=== PATIENT | female | born 1955 | race Caucasian/White ===

== ENCOUNTER 2024-08-19 11:11 | Inpatient (IN) | payer MEDICARE, OTHER ==
[~2024-08-19] VITALS: Ht 172.7 cm; Wt 54.4 kg
[2024-08-19] MEDS ORDERED: ONDA-104 PO (11:32)
[2024-08-19] MEDS ORDERED: METO25TA6 PO (11:32)
[2024-08-19] MEDS ORDERED: GABA300C PO (11:32)
[2024-08-19] MEDS ORDERED: ASPI81TA31 PO (11:32)
[2024-08-19] MEDS ORDERED: SENN1TAB59 PO (11:32)
[2024-08-19] MEDS ORDERED: POLY17PO4 PO (11:32)
[2024-08-19] MEDS ORDERED: LORA-259 PO (11:32)
[2024-08-19] MEDS ORDERED: MELA3CAP2 PO (11:32)
[2024-08-19] MEDS ORDERED: BISA10SU61 RC (11:32)
[2024-08-19] MEDS ORDERED: LOSA25TA27 PO (11:32)
[2024-08-19] MEDS ORDERED: MULT-213 PO (11:32)
[2024-08-19] MEDS ORDERED: HYDR-501 PO (11:32)
[2024-08-19] MEDS ORDERED: FOLI1TAB27 PO (11:32)
[2024-08-19] MEDS ORDERED: NITR0.4T48 SL (11:32)
[2024-08-19] MEDS ORDERED: MAG355OR18 PO (11:32)
[2024-08-19 12:00] LABS: BASOPHILS # (AUTO) 0.1 K/UL (0.0-0.2); DIFFERENTIAL COMMENT 0; EOSINOPHILS # (AUTO) 0.1 K/uL (0.0-0.7); EOSINOPHILS % (AUTO) 3.1 % (0.0-7.0); HEMATOCRIT 32.3 % (31.2-41.9); HEMOGLOBIN 11.1 g/dL (10.9-14.3); LYMPHOCYTES # (AUTO) 1.6 K/uL (0.8-4.8); LYMPHOCYTES % (AUTO) 34.5 % (20.5-51.5); MEAN CORPUSCULAR HEMOGLOBIN 33.7 uug (24.7-32.8); MEAN CORPUSCULAR HGB CONC 34 g/dL (32.3-35.6); MEAN CORPUSCULAR VOLUME 98.5 fL (75.5-95.3); MONOCYTES # (AUTO) 0.3 K/uL (0.1-1.30); MONOCYTES % (AUTO) 6.6 % (0.0-11.0); NEUTROPHILS # (AUTO) 2.5 K/uL (1.8-8.9); NEUTROPHILS % (AUTO) 53.8 % (38.5-71.5); PLATELET COUNT (AUTO) 291 K/uL (179-408); RED BLOOD CELL COUNT(AUTO) 3.28 MIL/uL (3.63-4.92); RED CELL DISTRIBUTION WIDTH 14.5 % (12.3-17.7); WHITE BLOOD COUNT (AUTO) 4.7 K/uL (3.8-11.8)
[2024-08-19 12:08] LABS: *BILIRUBIN,URIN NEGATIVE (NEGATIVE); *BLOOD, URINE NEGATIVE (NEGATIVE); *CLARITY,URINE CLEAR (CLEAR); *COLOR,URINE YELLOW (YELLOW); *KETONES,URINE NEGATIVE (NEGATIVE); *PROTEIN,URINE NEGATIVE (NEGATIVE); *UROBILINOGEN,URINE 0.2 E.U./dl (NORMAL); LEUKOCYTE ESTERASE ,URINE NEGATIVE (NEGATIVE); NITRITE, URINE NEGATIVE (NEGATIVE); UGLUCOSE NEGATIVE (NEGATIVE)
[2024-08-19 12:13] LABS: ALANINE AMINOTRANSFERASE 36 U/L (14-59); ALBUMIN 3.8 g/dL (3.4-5.0); ALKALINE PHOSPHATASE 67 U/L (50-136); ASPARTATE AMINOTRANSFERASE 26 U/L (15-37); BILIRUBIN,DIRECT 0.2 mg/dL (0.0-0.2); BILIRUBIN,TOTAL 0.5 mg/dL (0.2-1.0); CALCIUM 9.4 mg/dL (8.5-10.1); CARBON DIOXIDE 27 mmol/L (21-32); CHLORIDE 106 mmol/L (98-107); CREATININE 0.6 mg/dL (0.6-1.3); ETHANOL < 3 MG/DL (0-10); GLUCOSE 85 mg/dL (74-106); SODIUM SERUM 143 mmol/L (136-145); TOTAL PROTEIN, SERUM 6.8 g/dL (6.4-8.2); UREA NITROGEN, BLOOD 6 mg/dL (7-18)
[2024-08-19 12:14] LABS: ACETAMINOPHEN < 2.0 ug/mL (10-30)
[2024-08-19 12:16] LABS: POTASSIUM 4.1 mmol/L (3.5-5.1)
[2024-08-19 12:20] LABS: *AMPHETAMINE, URINE NEGATIVE (NEGATIVE); *BARBITURATE, URINE NEGATIVE (NEGATIVE); *BENZODIAZEPINE, URINE NEGATIVE (NEGATIVE); *CANNABINOID, URINE NEGATIVE (NEGATIVE); *COCCAINE, URINE NEGATIVE (NEGATIVE); *OPIATE, URINE NEGATIVE (NEGATIVE); *PHENCYCLIDINE SCREEN,URINE NEGATIVE (NEGATIVE); FENTANYL, URINE NEGATIVE (NEGATIVE)
[2024-08-19 13:08] LABS: IRON, SERUM 56 ug/dL (50-175)
[2024-08-19] MEDS ORDERED: MELA3TAB41 PO (16:35)
[2024-08-19] MEDS ORDERED: MAGNESIUM HYDROXIDE 30 ML LIQUID UDC PO PRN (17:00)
[2024-08-19] MEDS ORDERED: MAG HYDROX/AL HYDROX/SIMETH 30 ML LIQUID UDC PO PRN ×2 (17:00→18:00)
[2024-08-19] MEDS ORDERED: TEMAZEPAM 7.5 MG CAPSULE PO PRN ×2 (17:00)
[2024-08-19 17:30] VITALS: BP 128/71; TEMP 98.6; O2SAT 98
[2024-08-19] MEDS ORDERED: TEMAZEPAM 15 MG CAPSULE PO PRN (17:30)
[2024-08-19] MEDS: BLOOD SUGAR DIAGNOSTIC 1 EACH STRIP VI ONE (17:37)
[2024-08-19] MEDS: LORAZEPAM 1 MG TABLET PO PRN (17:40)
[2024-08-19] MEDS ORDERED: SENNOSIDES/DOCUSATE SODIUM TABLET PO PRN (18:00)
[2024-08-19] MEDS ORDERED: NITROGLYCERIN 0.4 MG/TAB BOTTLE SL PRN (18:00)
[2024-08-19] MEDS ORDERED: MIRALAX 17 GM POWD.PACK PO PRN (18:00)
[2024-08-19] MEDS ORDERED: ONDANSETRON HCL 4 MG TABLET PO PRN (18:00)
[2024-08-19] MEDS ORDERED: BISACODYL 10 MG SUPP.RECT RC PRN (18:00)
[2024-08-19 20:08] VITALS: BP 126/66; TEMP 98.1; O2SAT 98
[2024-08-19] MEDS: ACETAMINOPHEN 325 MG TABLET PO PRN (20:59)
[2024-08-19] MEDS: METOPROLOL TARTRATE 25 MG TABLET PO SCH (21:00)
[2024-08-19] MEDS: TEMAZEPAM 15 MG CAPSULE PO PRN (23:20)
[2024-08-20 08:22] VITALS: BP 139/69; TEMP 98.1; O2SAT 98
[2024-08-20] MEDS: GABAPENTIN 300 MG CAPSULE PO SCH (08:51)
[2024-08-20] MEDS: FOLIC ACID 1 MG TABLET PO SCH (08:51)
[2024-08-20] MEDS: MULTIVIT, IRON, MIN NO. 8, FA TABLET PO SCH (08:51)
[2024-08-20] MEDS: ASPIRIN 81 MG TAB.CHEW PO SCH (08:51)
[2024-08-20] MEDS: NICOTINE 14 MG/24HR PATCH TD SCH (08:51)
[2024-08-20] MEDS: LOSARTAN POTASSIUM 25 MG TABLET PO SCH (08:52)
[2024-08-20] MEDS ORDERED: Medication Not On Formulary EA (Multivitamins W-Minerals (Multivitamin With Minerals) 1 PO SCH (09:00)
[2024-08-20 16:21] VITALS: BP 139/56; TEMP 98.3; O2SAT 98
[2024-08-20] MEDS: LORAZEPAM 1 MG TABLET PO PRN (16:57)
[2024-08-20 19:59] VITALS: BP 130/62; TEMP 98.2; O2SAT 96
[2024-08-20] MEDS: MIRTAZAPINE 15 MG TABLET PO SCH (20:35)
[2024-08-21 07:39] VITALS: BP 116/55; TEMP 98.2; O2SAT 96
[2024-08-21 13:25] VITALS: BP 118/63; O2SAT 96
[2024-08-21 15:01] VITALS: BP 151/74; TEMP 98.2; O2SAT 98
[2024-08-21 19:48] VITALS: BP 107/49; TEMP 98; O2SAT 99
[2024-08-21 20:12] VITALS: BP 133/60; TEMP 98.1; O2SAT 98
[2024-08-21] MEDS: TEMAZEPAM 15 MG CAPSULE PO PRN (22:21)
[2024-08-22 08:10] VITALS: BP 119/75; TEMP 97.7; O2SAT 100
[2024-08-22] MEDS ORDERED: IBUPROFEN 400 MG TABLET PO PRN (11:45)
[2024-08-22 13:42] LABS: THYROID STIMULATING HORMONE 0.523 mIU/mL (0.358-3.740)
[2024-08-22 16:09] VITALS: BP 124/62; TEMP 98; O2SAT 100
[2024-08-22] MEDS: ENSURE ENLIVE (VAN) 240 ML LIQUID PO SCH (17:25)
[2024-08-22 20:00] VITALS: BP 101/63; TEMP 97.5; O2SAT 98
[2024-08-23 08:10] VITALS: BP 117/45; TEMP 98; O2SAT 97
[2024-08-23] MEDS: THIAMINE HCL 100 MG TABLET PO SCH (09:07)
[2024-08-23 16:34] VITALS: BP 128/62; TEMP 98.5; O2SAT 100
[2024-08-23 19:49] VITALS: BP 125/61; TEMP 98.2; O2SAT 98
[2024-08-24 08:02] VITALS: BP 117/60; TEMP 98; O2SAT 100
[2024-08-24 12:08] VITALS: BP 94/51; O2SAT 100
[2024-08-24 15:20] VITALS: BP 111/57; TEMP 98; O2SAT 98
[2024-08-24] MEDS: METOPROLOL TARTRATE 25 MG TABLET PO SCH (17:00)
[2024-08-24] MEDS: ATORVASTATIN 20 MG TABLET PO SCH (20:25)
[2024-08-24 23:19] VITALS: BP 106/55; TEMP 97.6; O2SAT 99
[2024-08-25 08:42] VITALS: BP 120/69; TEMP 98; O2SAT 96
[2024-08-25 10:11] VITALS: BP 120/69
[2024-08-25 12:08] LABS: METHYLMALONIC ACID 140 nmol/L (0-378)
== END 2024-08-25 11:35 | disposition other institution (70) | DRG 885 ==
LOC: ER 11:11 → GPS 15:46
PROVIDERS: ADMIT Psychiatry & Neurology Psychiatry; ATTEND Nurse Practitioner Family
DX: F33.3 Major depressive disorder, recurrent, severe with psychotic symptoms (principal); G47.00 Insomnia, unspecified; D63.8 Anemia in other chronic diseases classified elsewhere; F10.20 Alcohol dependence, uncomplicated; I10 Essential (primary) hypertension; G62.9 Polyneuropathy, unspecified; E78.5 Hyperlipidemia, unspecified
CPT/HCPCS: 36415; 70030-TC; 70450; 83550; 83921; 84443; 85025; A4606; A4663; G0480